=== PATIENT | female | born 1940 | race Caucasian/White ===

== ENCOUNTER → 2017-02-06 | Outpatient (CLI) | payer OTHER ==
--- NOTE | 2017-02-06 16:06 | ECHOCARDIOGRAM REPORT ---
*NOTICE TO RECEIVING CONSTITUTION PARTY AGENCY This information is strictly Confidential and protected under [place] law. [place] law prohibits you from making any further disclosure of this information unless further disclosure is expressly permitted by the written consent of the person to whom it pertains or is authorized by law. A general authorization for the release of medical or other information is not sufficient for this purpose. Hospital accepts no responsibility if the information is made available to any other person, INCLUDING THE PATIENT. Interpretation Summary * Name: CAYDEN LEIJA Study Date: 02/06/2017 02:06 PM BP: 176/78 mmHg * Patient Location: [facility] HR: 69 * : 1940 (M/d/yyyy) Gender: Female Height: 59 in * Age: 76 yrs Ethnicity: CA Weight: 140 lb * Ordering Physician: THOM CARVER. CLAUDETTE * Performed By: Robyn Hancock * * Reason For Study: MURMUR * BSA: 1.6 m2 * Normal biventricular systolic function. * Left ventricular class I diastolic dysfunction. * Normal chamber dimensions. * Trace tricuspid regurgitation. * No significant valvular abnormalities. Procedure Details * A complete two-dimensional transthoracic echocardiogram was performed (2D, M-mode, Doppler and color flow Doppler). Left Ventricle * The left ventricle is normal in size. * There is normal left ventricular wall thickness. * Ejection Fraction = 60-65%. * Left ventricular systolic function is normal. * A full diastolic examination was done with clinical findings of Class I diastolic dysfunction. * The left ventricular wall motion is normal. Right Ventricle * The right ventricle is normal in size and function. * The right ventricular systolic function is normal as assessed by tricuspid annular plane systolic excursion (TAPSE) (normal >1.5 cm). Atria * The left atrial size is normal. * Right atrial size is normal. * No ASD detected; PFO is not assessed. Mitral Valve * The mitral valve is normal. * There is no mitral valve stenosis. * There is no mitral regurgitation noted. Tricuspid Valve * The tricuspid valve is normal. * There is no tricuspid stenosis. * There is trace tricuspid regurgitation. * Right ventricular systolic pressure is normal. Aortic Valve * The aortic valve opens well. * The aortic valve is trileaflet. * Aortic stenosis is absent. * No aortic regurgitation is present. Pulmonic Valve * The pulmonic valve is not well visualized. * The pulmonary valve is inadequately visualized, but the Doppler data is adequate for interpretation. * There is no pulmonic valvular stenosis. * There is no pulmonic valvular regurgitation. Great Vessels * The aortic root is normal size. Pericardium/Pleural * There is no pericardial effusion. Great Vessels * Normal inferior vena cava diameter and respiratory variation suggests normal central venous pressure. MMode 2D Measurements and Calculations IVSd 1.1 cm IVSs 1.7 cm LVIDd 3.5 cm LVIDs 2.5 cm LVPWd 1.1 cm LVPWs 1.8 cm IVS/LVPW 0.94 FS 29.2 % EDV(Teich) 50.8 ml ESV(Teich) 21.8 ml EF(Teich) 57.0 % EDV(cubed) 42.8 ml ESV(cubed) 15.2 ml EF(cubed) 64.4 % % IVS thick 58.4 % % LVPW thick 55.2 % LV mass(C)d 120.4 grams LV mass(C)dI 76.0 grams/m\S\2 LV mass(C)s 163.7 grams LV mass(C)sI 103.3 grams/m\S\2 CO(Teich) 1.9 l/min CI(Teich) 1.2 l/min/m\S\2 SV(Teich) 29.0 ml SI(Teich) 18.3 ml/m\S\2 CO(cubed) 1.8 l/min CI(cubed) 1.1 l/min/m\S\2 SV(cubed) 27.6 ml SI(cubed) 17.4 ml/m\S\2 Ao root diam 3.0 cm Ao root area 6.9 cm\S\2 ACS 1.1 cm LA dimension 3.6 cm asc Aorta Diam 3.0 cm LA/Ao 1.2 LVOT diam 1.7 cm LVOT area 2.2 cm\S\2 LVAd ap4 23.3 cm\S\2 LVLd ap4 7.0 cm EDV(MOD-sp4) 64.3 ml LVAs ap4 13.2 cm\S\2 LVLs ap4 5.6 cm ESV(MOD-sp4) 26.7 ml EF(MOD-sp4) 58.5 % LVAd ap2 19.1 cm\S\2 LVLd ap2 6.7 cm EDV(MOD-sp2) 45.2 ml LVAs ap2 10.2 cm\S\2 LVLs ap2 5.7 cm ESV(MOD-sp2) 18.8 ml EF(MOD-sp2) 58.4 % CO(MOD-sp4) 2.4 l/min CI(MOD-sp4) 1.5 l/min/m\S\2 SV(MOD-sp4) 37.6 ml SI(MOD-sp4) 23.7 ml/m\S\2 CO(MOD-sp2) 1.7 l/min CI(MOD-sp2) 1.1 l/min/m\S\2 SV(MOD-sp2) 26.4 ml SI(MOD-sp2) 16.7 ml/m\S\2 Doppler Measurements and Calculations MV E max antoinette 62.1 cm/sec MV A max antoinette 98.5 cm/sec MV E/A 0.63 MV dec time 0.30 sec Ao V2 max 153.6 cm/sec Ao max PG 9.4 mmHg Ao max PG (full) 3.8 mmHg ADAN(V,A) 1.7 cm\S\2 ADAN(V,D) 1.7 cm\S\2 LV V1 max PG 5.6 mmHg LV V1 max 118.8 cm/sec PA V2 max 92.6 cm/sec PA max PG 3.4 mmHg TR max antoinette 261.1 cm/sec
== END | disposition home or self-care (01) ==
LOC: C.CPL 13:59
PROVIDERS: ATTEND Physician Assistant
DX: R01.1 Cardiac murmur, unspecified (principal)

== ENCOUNTER → 2017-03-12 | Outpatient (CLI) | payer OTHER ==
--- NOTE | 2017-03-12 14:18 | MAMMOGRAPHY REPORT ---
BILATERAL DIGITAL SCREENING MAMMOGRAM WITH CAD: 03/12/2017 CLINICAL HISTORY: Routine screening. Patient has no complaints. TECHNIQUE: Bilateral CC, MLO and repeat left MLO views were obtained. Current study was also evaluat ed with a Computer Aided Detection (CAD) system. COMPARISON: Comparison is made to exams dated: 09/14/2013 mammogram, 08/13/2012 mammogram, 07/11/2011 m ammogram, 06/27/2010 mammogram - [facility], 03/31/2009, and 07/04/2010 ultrasound - [facility]. BREAST COMPOSITION: The tissue of both breasts is heterogeneously dense, which may obscure small mas ses. FINDINGS: There are mild vascular calcifications in the breasts. Scattered and loosely grouped benig n-appearing round and punctate microcalcifications. No new suspicious mass, architectural distortion or cluster of microcalcifications is seen. IMPRESSION: ACR BI-RADS CATEGORY 1: NEGATIVE There is no mammographic evidence of malignancy. A 1 year screening mammogram is recommended. The pa tient will receive written notification of the results. Approximately 10% of breast cancers are not detected with mammography. A negative mammographic report should not delay biopsy if a clinically suggestive mass is present. Stella Hutson M.D. ay/:03/12/2017 08:51:08 General Dentist/Owner: Marya Martinez, [facility] letter sent: Normal 1/2 BI-RADS Code: ACR BI-RADS Category 1: Negative
== END | disposition home or self-care (01) ==
LOC: C.MAMM 08:17
PROVIDERS: ATTEND Physician Assistant
DX: Z12.31 Encounter for screening mammogram for malignant neoplasm of breast (principal)

== ENCOUNTER 2025-05-17 08:02 | Observation (INO) ==
--- NOTE | 2025-05-17 08:12 | Emergency Department Note ---
Impression & Plan Bilateral pneumonia, Abdominal pain ED Provider Note NAME: CAYDEN LEIJA AGE: 85 SEX: F : 1940 ARRIVES VIA: Walk-In INFORMANT: Patient, ED PROVIDER(S): Richard Griggs MD CHIEF COMPLAINT: Abdominal pain MEDICAL DECISION MAKING: Patient presents due to concern for abdominal pain. Patient reports this is positional and in the mid abdomen. Given the patient's age to be the patient would benefit from blood work and only screening x-ray even in light of the positional nature and that the fact the patient may just have an abdominal strain. Did discuss with the patient that if she did have an elevated white count would consider a CAT scan of the abdomen pelvis. Patient was ordered 500 of IV fluids in addition to Tylenol and lidocaine patch. Patient without chest pain or shortness of breath no nausea or vomiting. The patient's blood work shows a white count of 11. X-ray showed concern for possible bibasilar pneumonia. Hemoglobin 11.9 with a normal platelet count kidney function is unremarkable. Urinalysis without signs of obvious infection BioFire negative. Troponin negative. Pro-Marty negative. CT abdomen pelvis ordered. Unremarkable but noted bibasilar pneumonia. Patient denies any chest pain or cough. Patient also noted to have a mass of the uterus. He did discuss this and that this may benefit from further evaluation while inpatient patient's curb 65 score of 2 so recommend inpatient treatment. Patient was ordered IV Rocephin EKG without QT prolongation so azithromycin also added. I did speak with the on-call hospital service Dr. Leyva and the patient was admitted to the medicine service. Discussion w/ other healthcare providers: Dr. Luke inpatient medicine service Prior /Outside records reviewed: None Differential diagnosis: Strain, hernia, appendicitis, diverticulitis, UTI, obstruction, inflammatory bowel disease, renal colic, PUD, pancreatitis, biliary pathology, hernia, volvulus, constipation, as well as other pathologies were considered. Diagnostics, as interpreted by me: ECG: Sinus with first gravy block, rate of 64 prolonged LA normal QRS, left axis deviation Q-wave noted in V2. No obvious STEMI Cardiac monitoring: An order was placed for continuous cardiac monitoring. The monitor shows a rate of 67 with sinus rhythm. Patient was placed on pulse oximetry Medical decision rules: Curb 65 score of 2 Imaging studies: I informally interpreted the patient's chest x-ray shows possible bibasilar pneumonia with formal report to follow. HPI: Patient presents due to concern for abdominal pains. The patient states this been ongoing about 2 or 3 days has improved over the last 2 to 3 days and thought that this may be related to a strain. The patient states that she was doing some yard work and putting up some [place] lights and with the twisting and turning believes that she developed the discomfort. Patient denies any heavy lifting no falls or trauma. She denies any nausea vomiting. The patient reports that the pain is in the middle of her abdomen. Patient denies any difficulty with urination or defecation no blood in the urine or stool. Patient states that she has been taking some aspirin. The patient also has been applying rubbing alcohol to her abdomen. Patient denies any obvious hernias. No fevers or chills. She denies any chest pains or shortness of breath no cough or fever. PAST MEDICAL HISTORY: See Below PAST SURGICAL HISTORY: See Below SOCIAL HISTORY: See Below HOME MEDICATIONS: See Below ALLERGIES: See Below VITALS: See Below PHYSICAL EXAMINATION: GENERAL: NAD, non-toxic. EYE EXAM: Normal conjunctiva. PERRL, no anisocoria and EOM's grossly intact w/o pain. OROPHARYNX: Moist mucus membranes, grossly normal dentition. NECK: Trachea midline, no stridor. LUNGS: Clear to auscultation. Normal chest wall mechanics. HEART: NSR, systolic ejection murmur. ABDOMEN: Abdomen soft, mid abdomen pain without obvious hernias, no masses, no rebound or guarding. BACK: No CVA TTP. SKIN: No rashes and no bruising. UPPER EXTREMITIES: Upper extremities are grossly normal. LOWER EXTREMITIES: Grossly normal, no edema. NEURO EXAM: Awake and alert, follows commands, no obvious facial asymmetry, normal speech, moves all 4 extremities. Past Med/Surg History Problem List (Updated 05/18/25 @ 08:58 by Richard Griggs MD) Abdominal pain (Acute) Bilateral pneumonia (Acute) Anemia Pneumonia Sebaceous cyst Urge incontinence Hypercholesterolemia Lipoma Right shoulder pain Hypertension Overweight Heart murmur Diastolic dysfunction Tricuspid regurgitation Medical History Ganglion cyst Tick bite Contact dermatitis Surgical History Hx of excision of epidermal inclusion cyst (10/04/20) Excision of two cysts on back by Dr. Collins in clinic History of dental surgery bridges/ implants S/P lumpectomy, left breast left breast lump removal, benign Family History Father Hypertension Brother Dyslipidemia Hypertension Aunt Breast cancer Family/Other Breast cancer Uncle Cancer Social History Smoking Status: Never smoker Do You Dip or Chew Tobacco: No; Hx Alcohol Use: No Hx Substance Use: No Preferred Language: Azerbaijani Communication Ability: Effective Pool Nurse Required: No Beliefs That Will Affect Care: None marital status: Current Living Situation: Family Current Living Situation Comment: Lives with Daughter current occupational status: retired How many Children do You have: 4 Feels Safe at Home: Yes Assistive Devices: Glasses Allergies Allergies Allergy/AdvReac Type Severity Reaction Status Date / Time chocolate flavor AdvReac Verified 10/18/20 11:24 soy AdvReac Verified 10/18/20 11:24 strawberry AdvReac Verified 10/18/20 11:24 Home Meds Home Medications Medication Instructions Recorded Confirmed aspirin 81 mg tablet,delayed 81 mg PO DAILY 09/27/20 05/17/25 release (Adult Aspirin Regimen) Results & Data (ED) Vital Signs Vital Signs - 24 hr 05/17/25 09:00 05/17/25 10:00 05/17/25 10:00 Pulse Rate 72 73 73 Pulse Rate [Apical] Pulse Rate from SpO2 Sensor Pulse Rhythm Pulse Rhythm [Apical] Pulse Strength [Apical] Respiratory Rate 22 21 18 Respiratory Effort / Characteristics Respiratory Depth Respiratory Pattern Blood Pressure 190/80 H 210/89 H 210/89 H Blood Pressure [Left Arm] Blood Pressure Mean 126 145 145 Blood Pressure Mean [Left Arm] Pulse Oximetry 94 94 93 Oxygen Delivery Method Room Air Room Air Room Air 05/17/25 11:13 05/17/25 11:15 05/17/25 11:21 Pulse Rate 67 67 64 Pulse Rate [Apical] Pulse Rate from SpO2 Sensor 66 Pulse Rhythm Pulse Rhythm [Apical] Pulse Strength [Apical] Respiratory Rate 20 17 16 Respiratory Effort / Characteristics Respiratory Depth Respiratory Pattern Blood Pressure 193/84 H Blood Pressure [Left Arm] Blood Pressure Mean 102 Blood Pressure Mean [Left Arm] Pulse Oximetry 94 93 Oxygen Delivery Method Room Air 05/17/25 11:30 05/17/25 12:00 05/17/25 12:09 Pulse Rate 61 70 64 Pulse Rate [Apical] Pulse Rate from SpO2 Sensor 71 65 Pulse Rhythm Pulse Rhythm [Apical] Pulse Strength [Apical] Respiratory Rate 15 18 18 Respiratory Effort / Characteristics Respiratory Depth Respiratory Pattern Blood Pressure Blood Pressure [Left Arm] Blood Pressure Mean Blood Pressure Mean [Left Arm] Pulse Oximetry 93 93 Oxygen Delivery Method 05/17/25 12:10 05/17/25 12:10 05/17/25 12:10 Pulse Rate 67 Pulse Rate [Apical] Pulse Rate from SpO2 Sensor Pulse Rhythm Pulse Rhythm [Apical] Pulse Strength [Apical] Respiratory Rate 19 Respiratory Effort / Characteristics Respiratory Depth Respiratory Pattern Blood Pressure 217/104 H 217/104 H 217/104 H Blood Pressure [Left Arm] Blood Pressure Mean 169 169 169 Blood Pressure Mean [Left Arm] Pulse Oximetry 97 Oxygen Delivery Method 05/17/25 12:10 05/17/25 12:10 05/17/25 12:12 Pulse Rate 68 Pulse Rate [Apical] Pulse Rate from SpO2 Sensor Pulse Rhythm Pulse Rhythm [Apical] Pulse Strength [Apical] Respiratory Rate 19 Respiratory Effort / Characteristics Respiratory Depth Respiratory Pattern Blood Pressure 217/104 H 217/104 H Blood Pressure [Left Arm] Blood Pressure Mean 169 169 Blood Pressure Mean [Left Arm] Pulse Oximetry Oxygen Delivery Method 05/17/25 12:15 05/17/25 12:15 05/17/25 12:15 Pulse Rate 67 Pulse Rate [Apical] Pulse Rate from SpO2 Sensor Pulse Rhythm Pulse Rhythm [Apical] Pulse Strength [Apical] Respiratory Rate 18 Respiratory Effort / Characteristics Respiratory Depth Respiratory Pattern Blood Pressure 210/98 H 210/98 H Blood Pressure [Left Arm] Blood Pressure Mean 146 146 Blood Pressure Mean [Left Arm] Pulse Oximetry 85 L Oxygen Delivery Method 05/17/25 12:15 05/17/25 12:15 05/17/25 12:15 Pulse Rate Pulse Rate [Apical] Pulse Rate from SpO2 Sensor Pulse Rhythm Pulse Rhythm [Apical] Pulse Strength [Apical] Respiratory Rate Respiratory Effort / Characteristics Respiratory Depth Respiratory Pattern Blood Pressure 210/98 H 210/98 H 210/98 H Blood Pressure [Left Arm] Blood Pressure Mean 146 146 146 Blood Pressure Mean [Left Arm] Pulse Oximetry Oxygen Delivery Method 05/17/25 12:15 05/17/25 12:15 Pulse Rate 68 Pulse Rate [Apical] 67 Pulse Rate from SpO2 Sensor Pulse Rhythm Regular Pulse Rhythm [Apical] Regular Pulse Strength [Apical] Normal Respiratory Rate 16 15 Respiratory Effort / Characteristics Non-Labored Spontaneous Respiratory Depth Normal Respiratory Pattern Regular Blood Pressure Blood Pressure [Left Arm] 194/91 H Blood Pressure Mean Blood Pressure Mean [Left Arm] 125 Pulse Oximetry 94 95 Oxygen Delivery Method Room Air Room Air Home Medications Current Medication List: was personally reviewed by me Laboratory Data Attestation: I reviewed the patient's lab results. 05/18/25 07:32 05/18/25 07:32 Lab Results 05/17/25 05/17/25 05/17/25 Range/Units 08:32 10:00 10:40 WBC 11.08 H (4.8-10.8) K/ul RBC 3.77 L (4.20-5.40) M/uL Hgb 11.9 L (12.0-16.0) g/dL Hct 35.7 L (37.0-47.0) % MCV 94.7 (80.0-100.0) fL MCH 31.6 (25.0-34.0) pg MCHC 33.3 (32.0-36.0) g/dL RDW Std Deviation 50.6 H (36.4-46.3) fL RDW Coeff of Jose Martin 14.7 H (11.5-14.5) % Plt Count 319 (130-400) K/uL MPV 10.6 (9.4-12.4) fL Immature Gran % (Auto) 0.5 % Neut % (Auto) 82.8 % Lymph % (Auto) 6.9 % Mccreary % (Auto) 9.1 % Eos % (Auto) 0.2 % Baso % (Auto) 0.5 % Neut # (Auto) 9.16 H (1.40-6.50) K/uL Lymph # (Auto) 0.77 L (1.20-3.40) K/uL Mccreary # (Auto) 1.01 H (0.11-0.59) K/uL Eos # (Auto) 0.02 (0.00-0.50) K/uL Baso # (Auto) 0.06 (0.00-0.20) K/uL Immature Gran # (Auto) 0.06 (0.01-0.20) K/uL Sodium 138 (136-145) mmol/L Potassium 4.2 (3.5-5.1) mmol/L Chloride 104 (98-107) mmol/L Carbon Dioxide 26 (21-32) mmol/L Anion Gap 8 (3-11) BUN 20 (6-23) mg/dl Creatinine 0.78 (0.6-1.2) mg/dl Est Cr Clr Drug Dosing 43.5 ml/min eGFR 75.32 BUN/Creatinine Ratio 25.6 H (10-20) Glucose 149 H (70-99(Fasting)) mg/dl Calcium 10.1 (8.6-10.3) mg/dl Total Bilirubin 1.5 H (0.2-1.0) mg/dl AST 18 (13-39) U/L ALT 16 (7-52) U/L Alkaline Phosphatase 97 (34-104) U/L Troponin I High Sens (0-14) pg/ml Total Protein 8.3 (6.0-8.3) gm/dl Albumin 4.5 (3.4-5.0) gm/dl Globulin 3.8 (2.5-4.0) gm/dl Albumin/Globulin Ratio 1.2 (0.9-2) Lipase 4 L (11-82) U/L Procalcitonin (0-0.5) ng/ml Urine Color Yellow Urine Appearance Clear (Clear) Urine pH 6.5 (4.5-7.5) Ur Specific [place] 1.007 (1.000-1.030) Urine Protein Negative (Negative) Urine Glucose (UA) Negative (Negative) Urine Ketones Negative (Negative) Urine Blood Negative (Negative) Urine Nitrite Negative (Negative) Urine Bilirubin Negative (Negative) Urine Urobilinogen Negative (Negative) Ur Leukocyte Esterase Trace H (Negative) Urine WBC (Auto) 0-5 (0-5) /hpf Urine RBC (Auto) 0-2 (0-2) /hpf U Hyaline Cast (Auto) 0-2 (0-2) /lpf U Epithel Cells (Auto) 0-2 (0-2) /hpf Urine Bacteria (Auto) None Seen (None Seen) Urine Comment Adenovirus (PCR) Not Detected (NotDetected) B. pertussis DNA (PCR) Not Detected (NotDetected) B.parapertussis DNA PCR Not Detected (NotDetected) C. pneumoniae DNA (PCR) Not Detected (NotDetected) Coronavirus OC43 (PCR) Not Detected (NotDetected) Coronavirus HKU1 (PCR) Not Detected (NotDetected) Coronavirus 229E (PCR) Not Detected (NotDetected) SARS-CoV-2 (PCR) Not Detected (NotDetected) Coronavirus NL63 (PCR) Not Detected (NotDetected) Human Metapneumovir PCR Not Detected (NotDetected) Influenza Type A (PCR) Not Detected (NotDetected) Influenza Type B (PCR) Not Detected (NotDetected) M. pneumoniae (PCR) Not Detected (NotDetected) Parainfluenza 1 (PCR) Not Detected (NotDetected) Parainfluenza 2 (PCR) Not Detected (NotDetected) Parainfluenza 3 (PCR) Not Detected (NotDetected) Parainfluenza 4 (PCR) Not Detected (NotDetected) RSV (PCR) Not Detected (NotDetected) Entero/Rhino (PCR) Not Detected (NotDetected) 05/17/25 Range/Units 11:59 WBC (4.8-10.8) K/ul RBC (4.20-5.40) M/uL Hgb (12.0-16.0) g/dL Hct (37.0-47.0) % MCV (80.0-100.0) fL MCH (25.0-34.0) pg MCHC (32.0-36.0) g/dL RDW Std Deviation (36.4-46.3) fL RDW Coeff of Jose Martin (11.5-14.5) % Plt Count (130-400) K/uL MPV (9.4-12.4) fL Immature Gran % (Auto) % Neut % (Auto) % Lymph % (Auto) % Mccreary % (Auto) % Eos % (Auto) % Baso % (Auto) % Neut # (Auto) (1.40-6.50) K/uL Lymph # (Auto) (1.20-3.40) K/uL Mccreary # (Auto) (0.11-0.59) K/uL Eos # (Auto) (0.00-0.50) K/uL Baso # (Auto) (0.00-0.20) K/uL Immature Gran # (Auto) (0.01-0.20) K/uL Sodium (136-145) mmol/L Potassium (3.5-5.1) mmol/L Chloride (98-107) mmol/L Carbon Dioxide (21-32) mmol/L Anion Gap (3-11) BUN (6-23) mg/dl Creatinine (0.6-1.2) mg/dl Est Cr Clr Drug Dosing ml/min eGFR BUN/Creatinine Ratio (10-20) Glucose (70-99(Fasting)) mg/dl Calcium (8.6-10.3) mg/dl Total Bilirubin (0.2-1.0) mg/dl AST (13-39) U/L ALT (7-52) U/L Alkaline Phosphatase (34-104) U/L Troponin I High Sens 9.7 (0-14) pg/ml Total Protein (6.0-8.3) gm/dl Albumin (3.4-5.0) gm/dl Globulin (2.5-4.0) gm/dl Albumin/Globulin Ratio (0.9-2) Lipase (11-82) U/L Procalcitonin 0.05 (0-0.5) ng/ml Urine Color Urine Appearance (Clear) Urine pH (4.5-7.5) Ur Specific [place] (1.000-1.030) Urine Protein (Negative) Urine Glucose (UA) (Negative) Urine Ketones (Negative) Urine Blood (Negative) Urine Nitrite (Negative) Urine Bilirubin (Negative) Urine Urobilinogen (Negative) Ur Leukocyte Esterase (Negative) Urine WBC (Auto) (0-5) /hpf Urine RBC (Auto) (0-2) /hpf U Hyaline Cast (Auto) (0-2) /lpf U Epithel Cells (Auto) (0-2) /hpf Urine Bacteria (Auto) (None Seen) Urine Comment Adenovirus (PCR) (NotDetected) B. pertussis DNA (PCR) (NotDetected) B.parapertussis DNA PCR (NotDetected) C. pneumoniae DNA (PCR) (NotDetected) Coronavirus OC43 (PCR) (NotDetected) Coronavirus HKU1 (PCR) (NotDetected) Coronavirus 229E (PCR) (NotDetected) SARS-CoV-2 (PCR) (NotDetected) Coronavirus NL63 (PCR) (NotDetected) Human Metapneumovir PCR (NotDetected) Influenza Type A (PCR) (NotDetected) Influenza Type B (PCR) (NotDetected) M. pneumoniae (PCR) (NotDetected) Parainfluenza 1 (PCR) (NotDetected) Parainfluenza 2 (PCR) (NotDetected) Parainfluenza 3 (PCR) (NotDetected) Parainfluenza 4 (PCR) (NotDetected) RSV (PCR) (NotDetected) Entero/Rhino (PCR) (NotDetected) Administered Medications Aspirin (Aspirin 81 Mg Ectab) 81 mg PO DAILY [facility] Stop: 06/17/25 08:59 Last Admin: 05/18/25 08:07 Dose: 81 mg Documented By: dwayne Azithromycin (Azithromycin 250 Mg Tab) 250 mg PO QAM [facility] Stop: 05/21/25 09:01 Last Admin: 05/18/25 08:07 Dose: 250 mg Documented By: dwayne Enoxaparin Sodium (Enoxaparin Inj 40 Mg/0.4 Ml Syr) 40 mg SQ Q24H [facility] Stop: 06/16/25 15:59 Last Admin: 05/17/25 15:53 Dose: Not Given Documented By: dwayne Ondansetron HCl (Ondansetron Inj 2 Mg/Ml 2 Ml Vial) 4 mg IV Q6H PRN PRN Reason: Nausea Stop: 06/16/25 12:14 Last Admin: 05/17/25 15:53 Dose: 4 mg Documented By: dwayne Discontinued Medications Azithromycin (Azithromycin 250 Mg Tab) 500 mg PO NOW ONE Stop: 05/17/25 12:25 Last Admin: 05/17/25 12:34 Dose: 500 mg Documented By: jaime Hydralazine HCl (Hydralazine Hcl 20 Mg/Ml Vial) 5 mg IV NOW ONE Stop: 05/17/25 12:15 Last Admin: 05/17/25 12:35 Dose: 5 mg Documented By: jaime Hydralazine HCl (Hydralazine Hcl 20 Mg/Ml Vial) 10 mg IV NOW STA Stop: 05/17/25 14:10 Last Admin: 05/17/25 14:29 Dose: 10 mg Documented By: jaime Sodium Chloride (Nss) 500 mls @ 999 mls/hr IV .Q31M STA Stop: 05/17/25 08:52 Last Infusion: 05/17/25 09:37 Dose: Infused Documented By: Admin: 05/17/25 08:42 Dose: 999 mls/hr Documented By: HELEN Acetaminophen (Ofirmev) 1,000 mg in 100 mls @ 400 mls/hr IV NOW STA Stop: 05/17/25 08:36 Last Infusion: 05/17/25 09:37 Dose: Infused Documented By: Admin: 05/17/25 08:42 Dose: 400 mls/hr Documented By: HELEN Sodium Chloride (Nss) 500 mls @ 999 mls/hr IV .Q31M ONE Stop: 05/17/25 08:52 Last Admin: 05/17/25 09:37 Dose: Not Given Documented By: HELEN Ceftriaxone Sodium (Rocephin) 2,000 mg in 50 mls @ 100 mls/hr IV NOW STA Stop: 05/17/25 11:54 Last Infusion: 05/17/25 15:37 Dose: Infused Documented By: dwayne Admin: 05/17/25 11:39 Dose: 100 mls/hr Documented By: HELEN Ioversol (Optiray 320 100ml) 94 ml IV ONCE ONE Stop: 05/17/25 10:29 Last Admin: 05/17/25 10:28 Dose: 94 ml Documented By: PORFIRIO Lidocaine (Lidocaine 5% 1 Patch) 1 patch TD NOW STA Stop: 05/17/25 08:23 Last Admin: 05/17/25 08:43 Dose: 1 patch Documented By: HELEN Miscellaneous (Remove Lidoderm Patch) 1 each N/A DAILY@2100 [facility] Stop: 05/17/25 21:01 Last Admin: 05/17/25 21:25 Dose: 1 each Documented By: BMS Imaging Data Radiologist's Impression: Chest/Abdomen X-ray 05/17/25 08:22 XR abdomen 2V w PA chest CLINICAL HISTORY: abdominal pain COMPARISON STUDY: None FINDINGS: There is mild cardiomegaly without pulmonary vascular congestion. Inspiration is shallow. There is stranding and hazy opacity in the lung bases with blunting of the costophrenic angles. No pneumothorax. There is moderate retained stool. No bowel obstruction seen. No gross free air. IMPRESSION: 1. Pneumonia versus atelectasis in the lung bases. Possible small pleural effusions. 2. No acute findings seen at the abdomen. ACT 112: Negative or not required by law. Electronically signed by: Stuart Godinez M.D. 05/17/2025 9:07 AM Abdomen/Pelvis CT 05/17/25 10:[address] WITH IV CONTRAST CT DOSE: 1000.64 mGy.cm HISTORY: ab pain TECHNIQUE: Multiaxial CT images of the abdomen and pelvis were performed following the IV administration of 90 cc of Optiray, A dose lowering technique was utilized adhering to the principles of ALARA. COMPARISON STUDY: Chest x-ray earlier today FINDINGS: There is bandlike consolidation at the lung bases. There is reticular and groundglass opacity at the visualized right middle lobe. There is a trace right pleural effusion. ABDOMEN: Liver, gallbladder, spleen, pancreas, and adrenal glands are unremarkable. Kidneys show no hydronephrosis or calculi. There is a tiny cyst at the right kidney. There are moderate atherosclerotic calcifications. No abdominal aortic aneurysm. Pelvis: Urinary bladder is mildly distended. There is a lobulated hypodense mass measuring approximately 4 cm greatest dimension which is likely within the uterus. There is minimal sigmoid diverticulosis. No acute diverticulitis. There is moderate retained stool. Normal appendix. No bowel inflammation or obstruction seen. No free fluid, free air, or abscess. No enlarged adenopathy. Osseous structures: There is osteopenia. There is moderate chronic appearing height loss at the T12-L2 vertebral bodies and mild chronic-appearing height loss at the L3 vertebral body. There is severe lower lumbar degenerative disc disease. There is grade 1 anterolisthesis of L4 on 5. No acute-appearing osseous findings seen. IMPRESSION: 1. Bilateral lung base pneumonia. 2. No acute findings seen at the abdomen or pelvis. 3. Mass likely at the uterus. Follow-up pelvic ultrasound suggested. 4. Otherwise as described. ACT 112: Negative or not required by law. The above report was generated using voice recognition software. It may contain grammatical, syntax or spelling errors. Electronically signed by: Stuart Godinez M.D. 05/17/2025 11:05 AM Discharge Plan Visit Data Chief Complaint: Abdominal Pain Stated Complaint: ABD PAIN ED Provider: Richard Griggs Discharge Problem: Bilateral pneumonia, Abdominal pain Patient Disposition: Admitted As Inpatient Condition: Good Discharge Instructions Interventions: ED Discharge Assessment Last Done: 05/17/25 15:16 Discharge Problem: Bilateral pneumonia Qualifiers: Pneumonia type: due to unspecified organism Lung location: lower lobe of lung Q ualified Code(s): J18.9 - Pneumonia, unspecified organism Abdominal pain Qualifiers: Abdominal location: multiple sites Qualified Code(s): R10.85 - Abdominal pain of multiple sites
[2025-05-17] MEDS: SODIUM CHLORIDE 0.9% 500 ML IV STA (08:42)
[2025-05-17] MEDS: ACETAMINOPHEN 1,000 MG/100 ML VIAL IV STA (08:42)
[2025-05-17] MEDS: LIDOCAINE 5% 1 PATCH TD STA (08:43)
[2025-05-17 08:50] LABS: Hematocrit (blood only) 35.7 % (37.0-47.0); Hemoglobin 11.9 g/dL (12.0-16.0); Immature Granulocytes # (auto) 0.06 K/uL (0.01-0.20); Immature Granulocytes % (auto) 0.5 %; Mean Corpuscular Hemoglobin 31.6 pg (25.0-34.0); Mean Corpuscular Volume 94.7 fL (80.0-100.0); Platelet Count 319 K/uL (130-400); RDW Standard Deviation 50.6 fL (36.4-46.3); Red Blood Count 3.77 M/uL (4.20-5.40); White Blood Count 11.08 K/ul (4.8-10.8)
--- NOTE | 2025-05-17 09:08 | XRay Report ---
XR abdomen 2V w PA chest CLINICAL HISTORY: abdominal pain COMPARISON STUDY: None FINDINGS: There is mild cardiomegaly without pulmonary vascular congestion. Inspiration is shallow. T here is stranding and hazy opacity in the lung bases with blunting of the costophrenic angles. No pne umothorax. There is moderate retained stool. No bowel obstruction seen. No gross free air. IMPRESSION: 1. Pneumonia versus atelectasis in the lung bases. Possible small pleural effusions. 2. No acute findings seen at the abdomen. ACT 112: Negative or not required by law. Electronically signed by: Stuart Godinez M.D. 05/17/2025 9:07 AM
[2025-05-17 09:09] LABS: Alanine Aminotransferase 16.0 U/L (7-52); Albumin Globulin Ratio 1.2 (0.9-2); Albumin Level 4.5 gm/dl (3.4-5.0); Alkaline Phosphatase 97.0 U/L (34-104); Anion Gap 8.0 (3-11); Bilirubin,Total 1.5 mg/dl (0.2-1.0); Blood Urea Nitrogen 20.0 mg/dl (6-23); Calcium 10.1 mg/dl (8.6-10.3); Carbon Dioxide 26.0 mmol/L (21-32); Chloride 104.0 mmol/L (98-107); Creatinine Clr Calc Pharmacy 43.5 ml/min; Globulin 3.8 gm/dl (2.5-4.0); Glucose 149.0 mg/dl (70-99(Fasting)); Lipase 4.0 U/L (11-82); Potassium 4.2 mmol/L (3.5-5.1); Sodium 138.0 mmol/L (136-145); Total Protein 8.3 gm/dl (6.0-8.3)
[2025-05-17] MEDS: SODIUM CHLORIDE 0.9% 500 ML IV ONE (09:37)
[2025-05-17] MEDS: OPTIRAY 320 100ml IV ONE (10:28)
[2025-05-17 10:51] LABS: Appearance Urine Clear (Clear); Bacteria Urine Automated None Seen (None Seen); Cast Urine Automated 0-2 /lpf (0-2); Epithelial Cell Urine Auto 0-2 /hpf (0-2); Glucose Urine UA Negative (Negative); RBC Urine Automated 0-2 /hpf (0-2); WBC Urine Automated 0-5 /hpf (0-5)
--- NOTE | 2025-05-17 11:06 | CT Scan Report ---
ABDOMEN AND PELVIS CT WITH IV CONTRAST CT DOSE: 1000.64 mGy.cm HISTORY: ab pain TECHNIQUE: Multiaxial CT images of the abdomen and pelvis were performed following the IV administrat ion of 90 cc of Optiray, A dose lowering technique was utilized adhering to the principles of ALARA. COMPARISON STUDY: Chest x-ray earlier today FINDINGS: There is bandlike consolidation at the lung bases. There is reticular and groundglass opaci ty at the visualized right middle lobe. There is a trace right pleural effusion. ABDOMEN: Liver, gallbladder, spleen, pancreas, and adrenal glands are unremarkable. Kidneys show no h ydronephrosis or calculi. There is a tiny cyst at the right kidney. There are moderate atheroscleroti c calcifications. No abdominal aortic aneurysm. Pelvis: Urinary bladder is mildly distended. There is a lobulated hypodense mass measuring approximat beth 4 cm greatest dimension which is likely within the uterus. There is minimal sigmoid diverticulosi s. No acute diverticulitis. There is moderate retained stool. Normal appendix. No bowel inflammation or obstruction seen. No free fluid, free air, or abscess. No enlarged adenopathy. Osseous structures: There is osteopenia. There is moderate chronic appearing height loss at the T12-L 2 vertebral bodies and mild chronic-appearing height loss at the L3 vertebral body. There is severe l ower lumbar degenerative disc disease. There is grade 1 anterolisthesis of L4 on 5. No acute-appearin g osseous findings seen. IMPRESSION: 1. Bilateral lung base pneumonia. 2. No acute findings seen at the abdomen or pelvis. 3. Mass likely at the uterus. Follow-up pelvic ultrasound suggested. 4. Otherwise as described. ACT 112: Negative or not required by law. The above report was generated using voice recognition software. It may contain grammatical, syntax o r spelling errors. Electronically signed by: Stuart Godinez M.D. 05/17/2025 11:05 AM
[2025-05-17] MEDS: cefTRIAXone SODIUM 2,000 MG/50 ML BAG IV STA (11:39)
--- NOTE | 2025-05-17 11:46 | History & Physical Report ---
Date of Service May 17, 2025 Assessment & Plan (1) Pneumonia: (2) Hypertension: (3) Anemia: (4) Hypercholesterolemia: Plan This patient is an 85-year-old female with a history of untreated hyperlipidemia, whitecoat HTN, urinary incontinence, who presents to the ED with complaints of upper to mid abdominal pain. She was recently hanging [place] lights outside and thought maybe was related to that. Her pain is worse with trying to use her abdominal muscles. She has been very fatigued however the last few days and has noticed a nonproductive cough. No fevers or chills. No nausea/vomiting/diarrhea/constipation, no blood in her stool or indigestion. She was found to have fairly significant right sided pneumonia on a CT abdomen/pelvis. The CT otherwise showed a mass likely in the uterus. Her blood work showed mild anemia, mild leukocytosis, but no other signs of sepsis. Her total bilirubin was mildly elevated. Her blood pressure was significantly elevated at 210/89, pulse ox mildly low at 93% on room air, but vital signs were otherwise normal. She will be admitted for community-acquired pneumonia and hypertensive urgency. #Community-acquired pneumonia-curb 65 score 2 for BUN and age. With mild hypoxemia, mild leukocytosis. Abdominal pain could in part be referred from pneumonia. CT abdomen/pelvis without acute findings in the abdomen. Total bilirubin mildly elevated 1.5 could be Gilbert's syndrome as liver and gallb ladder appear normal. Respiratory BioFire negative, procalcitonin negative, but CXR and CT A/P clearly show pneumonia in RML and RLL, possible in LLL with bilateral small pleural effusions. - Admit to medical floor with telemetry - Treat pneumonia with ceftriaxone and azithromycin - Follow blood cultures, sputum culture if can produce a sample - Acetaminophen as needed for fevers or pain - Follow chest x-ray to resolution in 4 to 6 weeks #Abdominal pain-MSK in nature, clearly painful only with contraction of abdominal muscles. Abdominal pain could also be somewhat referred from the pneumonia. - Tylenol as needed for pain - Lidocaine patch placed in ED-continue #Hypertension/hypertensive urgency-noted in previous PCP notes from 4 years prior but no outpatient records currently available for review. She is not taking medication for this at home. Blood pressures here are quite elevated at 210/89. She reports whitecoat hypertension. With small pleural effusion seen on imaging which could be from pneumonia versus heart failure. With heart murmur noted on examination which patient reports is chronic - Check troponin - Check BNP - Check echocardiogram - Give IV hydralazine as needed for elevated blood pressure - Consider starting chlorthalidone versus lisinopril although she reports blood pressures at home are 120/80 #Hyperlipidemia-patient has declined treatment for this in the past. LDL in 2020 was elevated at 170. She takes a baby aspirin - Continue baby aspirin - Continue to follow with PCP #Uterine mass-likely fibroid. No vaginal bleeding or pelvic pain - Recommend outpatient pelvic ultrasound-discussed with patient and her daughter #Anemia-normocytic, Hgb at 11.9 with no baseline for comparison. No evidence of bleeding from anywhere. Last colonoscopy approximately 10 years ago - Check iron studies, B12, folate, TSH in the a.m. DVT prophylaxis-Lovenox SQ, SCDs Disposition-admit to medical floor with telemetry History of Present Illness Chief Complaint: Abdominal pain Primary Care Provider: Lucy Castillo MD This patient is an 85-year-old female with a history of untreated hyperlipidemia, whitecoat HTN, urinary incontinence, who presents to the ED with complaints of upper to mid abdominal pain. She was recently hanging [place] lights outside and thought maybe was related to that. Her pain is worse with trying to use her abdominal muscles. She has been very fatigued however the last few days and has noticed a nonproductive cough. No fevers or chills. No nausea/vomiting/diarrhea/constipation, no blood in her stool or indigestion. She was found to have fairly significant right sided pneumonia on a CT abdomen/pelvis. The CT otherwise showed a mass likely in the uterus. Her blood work showed mild anemia, mild leukocytosis, but no other signs of sepsis. Her total bilirubin was mildly elevated. Her blood pressure was significantly elevated at 210/89, pulse ox mildly low at 93% on room air, but vital signs were otherwise normal. She will be admitted for community-acquired pneumonia Allergies Allergy/AdvReac Type Severity Reaction Status Date / Time chocolate flavor AdvReac Verified 10/18/20 11:24 soy AdvReac Verified 10/18/20 11:24 strawberry AdvReac Verified 10/18/20 11:24 Home Medications Medication Instructions Recorded Confirmed Type aspirin 81 mg tablet,delayed 81 mg PO DAILY 09/27/20 05/17/25 History release (Adult Aspirin Regimen) Past Med/Surg History Problem List Anemia Pneumonia Sebaceous cyst Urge incontinence Hypercholesterolemia Lipoma Right shoulder pain Hypertension Overweight Heart murmur Diastolic dysfunction Tricuspid regurgitation Medical History Ganglion cyst Tick bite Contact dermatitis Surgical History Hx of excision of epidermal inclusion cyst (10/04/20) Excision of two cysts on back by Dr. Collins in clinic History of dental surgery bridges/ implants S/P lumpectomy, left breast left breast lump removal, benign Family History Father Hypertension Brother Dyslipidemia Hypertension Aunt Breast cancer Family/Other Breast cancer Uncle Cancer Social History Smoking Status: Never smoker Do You Dip or Chew Tobacco: No; Hx Alcohol Use: No Hx Substance Use: No Preferred Language: Burkin[place] Communication Ability: Effective Shark Biologist Required: No Beliefs That Will Affect Care: None marital status: Current Living Situation: Family Current Living Situation Comment: Lives with Daughter current occupational status: retired How many Children do You have: 4 Feels Safe at Home: Yes Assistive Devices: Glasses Review of Systems Review of Systems: All systems reviewed & are unremarkable except as noted in HPI & below Physical Exam Constitutional: WD/WN, vitals as above Neck: trachea midline, no thyromegaly Respiratory: normal respiratory effort; no cough Auscultation: + crackles (Right middle and lower lung bergeron); no rhonchi and no wheezes Cardiovascular: Rate/Rhythm: regular rate and regular rhythm Heart Sounds: + murmur (2/6 holosystolic murmur heard best at the LLSB) Extremities: no edema Chest (Breasts): Chest: normal inspection of chest Gastrointestinal (Abdomen): normal bowel sounds, soft, nontender, no hepatosplenomegaly Musculoskeletal: Extremities: extremities normal to inspection; no cyanosis and no clubbing Skin: no rashes, warm and dry Neurologic: moves all extremities and awake; no focal motor deficits Psychiatric: A+Ox3, euthymic affect Lymphatic: no lymphedema Results & Data Results & Data Vital Signs (Past 12 Hours) Vital Signs Temp Pulse Pulse Resp BP BP Pulse Ox 05/17/25 11:13 67 20 193/84 H 94 05/17/25 10:00 73 18 210/89 H 93 05/17/25 10:00 73 21 210/89 H 94 05/17/25 09:00 72 22 190/80 H 94 05/17/25 08:52 80 05/17/25 08:34 77 22 205/94 H 94 05/17/25 08:34 78 22 94 05/17/25 08:05 36.6 C 95 H 20 216/90 H 94 O2 Del Method 05/17/25 11:13 Room Air 05/17/25 10:00 Room Air 05/17/25 10:00 Room Air 05/17/25 09:00 Room Air 05/17/25 08:52 05/17/25 08:34 Room Air 05/17/25 08:34 Room Air 05/17/25 08:05 Room Air Laboratory Results CBC, CMP, UA reviewed Diagnostic Findings Chest/Abdomen X-ray 05/17/25 08:22 XR abdomen 2V w PA chest CLINICAL HISTORY: abdominal pain COMPARISON STUDY: None FINDINGS: There is mild cardiomegaly without pulmonary vascular congestion. Inspiration is shallow. There is stranding and hazy opacity in the lung bases with blunting of the costophrenic angles. No pneumothorax. There is moderate retained stool. No bowel obstruction seen. No gross free air. IMPRESSION: 1. Pneumonia versus atelectasis in the lung bases. Possible small pleural effusions. 2. No acute findings seen at the abdomen. ACT 112: Negative or not required by law. Electronically signed by: Stuart Godinez M.D. 05/17/2025 9:07 AM Abdomen/Pelvis CT 05/17/25 10:[address] WITH IV CONTRAST CT DOSE: 1000.64 mGy.cm HISTORY: ab pain TECHNIQUE: Multiaxial CT images of the abdomen and pelvis were performed following the IV administration of 90 cc of Optiray, A dose lowering technique was utilized adhering to the principles of ALARA. COMPARISON STUDY: Chest x-ray earlier today FINDINGS: There is bandlike consolidation at the lung bases. There is reticular and groundglass opacity at the visualized right middle lobe. There is a trace right pleural effusion. ABDOMEN: Liver, gallbladder, spleen, pancreas, and adrenal glands are unremarkable. Kidneys show no hydronephrosis or calculi. There is a tiny cyst at the right kidney. There are moderate atherosclerotic calcifications. No abdominal aortic aneurysm. Pelvis: Urinary bladder is mildly distended. There is a lobulated hypodense mass measuring approximately 4 cm greatest dimension which is likely within the uterus. There is minimal sigmoid diverticulosis. No acute diverticulitis. There is moderate retained stool. Normal appendix. No bowel inflammation or obstruction seen. No free fluid, free air, or abscess. No enlarged adenopathy. Osseous structures: There is osteopenia. There is moderate chronic appearing height loss at the T12-L2 vertebral bodies and mild chronic-appearing height loss at the L3 vertebral body. There is severe lower lumbar degenerative disc disease. There is grade 1 anterolisthesis of L4 on 5. No acute-appearing osseous findings seen. IMPRESSION: 1. Bilateral lung base pneumonia. 2. No acute findings seen at the abdomen or pelvis. 3. Mass likely at the uterus. Follow-up pelvic ultrasound suggested. 4. Otherwise as described. ACT 112: Negative or not required by law. The above report was generated using voice recognition software. It may contain grammatical, syntax or spelling errors. Electronically signed by: Stuart Godinez M.D. 05/17/2025 11:05 AM ECG Additional Comments: ECG on 05/17/2025 with sinus rhythm first-degree AV block, rate 64, no acute ischemic changes, subtle T wave inversions in aVL nonspecific Code Status & VTE Plan Code Status Full code VTE Prophylaxis Plan VTE Prophylaxis will be ordered: Yes PG Care Time/CCT Total # of Minutes Spent Total Time Spent with Patient: Total time spent is greater than 50% in coordination of care (as documented) at patient's floor/unit and/or counseling patient: Coding Level of Care Code 53356 INT INP/OBS CARE 3/75MIN Diagnoses Pneumonia J18.9 Hypertension I10 Anemia D64.9 Hypercholesterolemia E78.00
[2025-05-17] MEDS ORDERED: POLYETHYLENE (MIRALAX) 17 GM PACK PO PRN (12:15)
[2025-05-17] MEDS ORDERED: ACETAMINOPHEN 325 MG TAB PO PRN (12:15)
[2025-05-17] MEDS: AZITHROMYCIN 250 MG TAB PO ONE (12:34)
[2025-05-17 14:00] LABS: Chlamydia pneumoniae PCR Not Detected (NotDetected); Coronavirus 229E PCR Not Detected (NotDetected); Coronavirus CoV-2 (COVID19)PCR Not Detected (NotDetected); Coronavirus HKU1 PCR Not Detected (NotDetected); Coronavirus NL63 PCR Not Detected (NotDetected); Coronavirus OC43PCR Not Detected (NotDetected); Human Metapneumovirus PCR Not Detected (NotDetected); Parainfluenza Virus 1 PCR Not Detected (NotDetected); Parainfluenza Virus 2 PCR Not Detected (NotDetected); Parainfluenza Virus 3 PCR Not Detected (NotDetected); Parainfluenza Virus 4 PCR Not Detected (NotDetected); Respiratory Syncytial VirusPCR Not Detected (NotDetected); Rhinovirus/Enterovirus PCR Not Detected (NotDetected)
[2025-05-17] MEDS: ENOXAPARIN INJ 40 MG/0.4 ML SYR SQ SCH (15:53)
[2025-05-17] MEDS: ONDANSETRON INJ 2 MG/ML 2 ML VIAL IV PRN (15:53)
--- NOTE | 2025-05-17 15:58 | XCELERA ---
[id number]
[2025-05-17] MEDS: REMOVE LIDODERM PATCH SCH (21:25)
[2025-05-18] MEDS: ASPIRIN 81 MG ECTAB PO SCH (08:07)
[2025-05-18] MEDS: AZITHROMYCIN 250 MG TAB PO SCH (08:07)
[2025-05-18 08:12] LABS: Hematocrit (blood only) 31.6 % (37.0-47.0); Hemoglobin 10.6 g/dL (12.0-16.0); Immature Granulocytes # (auto) 0.05 K/uL (0.01-0.20); Immature Granulocytes % (auto) 0.4 %; Mean Corpuscular Hemoglobin 32.0 pg (25.0-34.0); Mean Corpuscular Volume 95.5 fL (80.0-100.0); Platelet Count 286 K/uL (130-400); RDW Standard Deviation 51.8 fL (36.4-46.3); Red Blood Count 3.31 M/uL (4.20-5.40); White Blood Count 12.50 K/ul (4.8-10.8)
[2025-05-18 08:30] LABS: Alanine Aminotransferase 11 U/L (7-52); Albumin Globulin Ratio 1.1 (0.9-2); Albumin Level 3.8 gm/dl (3.4-5.0); Alkaline Phosphatase 80 U/L (34-104); Anion Gap 8 (3-11); Bilirubin,Total 1.0 mg/dl (0.2-1.0); Blood Urea Nitrogen 22 mg/dl (6-23); Calcium 9.3 mg/dl (8.6-10.3); Carbon Dioxide 24 mmol/L (21-32); Chloride 107 mmol/L (98-107); Creatinine Clr Calc Pharmacy 39.3 ml/min; Globulin 3.4 gm/dl (2.5-4.0); Glucose 111 mg/dl (70-99(Fasting)); Iron < 10 mcg/dl (35-150); Potassium 4.0 mmol/L (3.5-5.1); Sodium 139 mmol/L (136-145); Total Iron Binding Cap Calc 246 mcg/dl (250-450); Total Protein 7.2 gm/dl (6.0-8.3); Transferrin 176 mg/dl (200-360)
[2025-05-18 08:43] LABS: Thyroid Stimulating Hormone 2.039 uIu/ml (0.300-4.500)
[2025-05-18 08:50] LABS: Ferritin 701.6 ng/ml (8-388); Folate (Folic Acid),Ser orPlas > 22.30 ng/ml (>5.38)
[2025-05-18 08:51] LABS: Vitamin B12 631 pg/ml (180-914)
[2025-05-18] MEDS: cefTRIAXone SODIUM 2,000 MG/50 ML BAG IV SCH (12:50)
[2025-05-18 15:39] VITALS: BP 155/72; RESP 20; TEMP 97.3; O2SAT 92
[2025-05-18 16:27] VITALS: PULSE 78
--- NOTE | 2025-05-18 16:30 | Discharge Summary ---
Discharge Summary Date of Service May 18, 2025 Principal Dx & Hospital Course #1 = Principal Diagnosis (1) Pneumonia: (2) Hypertension: (3) Anemia: (4) Hypercholesterolemia: Plan This patient is an 85-year-old female with a history of untreated hyperlipidemia, whitecoat HTN, urinary incontinence, who presents to the ED with complaints of upper to mid abdominal pain. She was recently hanging [place] lights outside and thought maybe was related to that. Her pain is worse with trying to use her abdominal muscles. She has been very fatigued however the last few days and has noticed a nonproductive cough. No fevers or chills. No nausea/vomiting/diarrhea/constipation, no blood in her stool or indigestion. She was found to have fairly significant right sided pneumonia on a CT abdomen/pelvis. The CT otherwise showed a mass likely in the uterus. Her blood work showed mild anemia, mild leukocytosis, but no other signs of sepsis. Her total bilirubin was mildly elevated. Her blood pressure was significantly elevated at 210/89, pulse ox mildly low at 93% on room air, but vital signs were otherwise normal. She was admitted for community-acquired pneumonia and hypertensive urgency. #Community-acquired pneumonia/small pleural effusions-CURB- 65 score 2 for BUN and age. With mild hypoxemia, mild leukocytosis. Abdominal pain could in part be referred from pneumonia. CT abdomen/pelvis without acute findings in the abdomen. Total bilirubin mildly elevated 1.5 could be Gilbert's syndrome as liver and gallbladder appear normal-repeat total bilirubin on the day of discharge was normal. Respiratory BioFire negative, procalcitonin negative, CRP elevated at 17. CXR and CT A/P clearly show pneumonia in RML and RLL, possible in LLL with bilateral small pleural effusions. BNP mildly elevated and echo with moderate to severe LVH but preserved EF. She had no arrhythmias on telemetry monitoring. She was treated for pneumonia with ceftriaxone and azithromycin. A sputum culture was never collected. Her blood cultures remained no growth to date at 24 hours. Leukocytosis persisted at 12, pulse ox 92% on room air, but overall feeling much improved by hospital day #2. - Continue azithromycin for 3 more days to finish out 5-day course. Finish cefdinir x 5 more days to finish out a 7-day course - Follow blood cultures after discharge-no growth to date - Acetaminophen as needed for fevers or pain - Follow chest x-ray to resolution in 4 to 6 weeks #Abdominal pain-MSK in nature, clearly painful only with contraction of abdominal muscles. Abdominal pain could also be somewhat referred from the pneumonia. Abdominal pain is almost completely resolved by hospital day #2 - Tylenol as needed for pain - Lidocaine patch placed x 1 and no need to continue after discharge #Hypertension/hypertensive urgency-noted in previous PCP notes from 4 years prior but no outpatient records currently available for review. She is not taking medication for this at home. Blood pressures here are quite elevated at 210/89. She reports whitecoat hypertension. With small pleural effusion seen on imaging which could be from pneumonia versus heart failure. With heart murmur noted on examination which patient reports is chronic. Troponin negative and ECG without ischemic changes-only had mild/subtle T wave inversions in lead aVL which are nonspecific. Echo here showed moderate to severe LVH and sclerotic aortic valve without aortic stenosis, preserved EF. Suspect she has uncontrolled hypertension at home that she is unaware of. Recommend starting antihypertensive medications but she prefers to discuss this with her PCP. She was treated with 2 doses of hydralazine 5 mg IV and blood pressures improved to the 150s over 70s by the time of discharge. - Consider starting chlorthalidone versus lisinopril as an outpatient-defer to PCP - Discussed low-sodium diet #Hyperlipidemia-patient has declined treatment for this in the past. LDL in 2020 was elevated at 170. She takes a baby aspirin - Continue baby aspirin - Continue to follow with PCP #Uterine mass-likely fibroid. No vaginal bleeding or pelvic pain - Recommend outpatient pelvic ultrasound-discussed with patient and her daughter-defer to PCP to order pelvic ultrasound #Anemia-normocytic, Hgb at 11.9 with no baseline for comparison. No evidence of bleeding from anywhere. Last colonoscopy approximately 10 years ago. Iron studies show chronic disease and perhaps suppression due to acute illness. B12, folate, and TSH all normal - Recommend following CBC and repeat iron studies in 1 month as an outpatient with PCP - If iron deficient, recommend EGD and colonoscopy with GI DVT prophylaxis-Lovenox SQ, SCDs Disposition-stable for discharge to home. All care discussed with her daughter at the bedside on the day of discharge Notes For Next Care Provider Check chest x-ray in 4 to 6 weeks to ensure resolution of pneumonia Needs pelvic ultrasound for uterine mass Recommend starting antihypertensive medication as an outpatient-patient prefers to discuss with PCP Check CBC and iron studies in 1 month Medication Changes From Visit Added cefdinir 300 mg p.o. twice daily x 5 days Added azithromycin 250 mg p.o. once daily x 3 days Admission HPI Per Admitting Provider This patient is an 85-year-old female with a history of untreated hyperlipidemia, whitecoat HTN, urinary incontinence, who presents to the ED with complaints of upper to mid abdominal pain. She was recently hanging [place] lights outside and thought maybe was related to that. Her pain is worse with trying to use her abdominal muscles. She has been very fatigued however the last few days and has noticed a nonproductive cough. No fevers or chills. No nausea/vomiting/diarrhea/constipation, no blood in her stool or indigestion. She was found to have fairly significant right sided pneumonia on a CT abdomen/pelvis. The CT otherwise showed a mass likely in the uterus. Her blood work showed mild anemia, mild leukocytosis, but no other signs of sepsis. Her total bilirubin was mildly elevated. Her blood pressure was significantly elevated at 210/89, pulse ox mildly low at 93% on room air, but vital signs were otherwise normal. She will be admitted for community-acquired pneumonia Discharge Exam Constitutional WD/WN, vitals as above Respiratory normal respiratory effort; no cough Auscultation: lungs clear to auscultation bilaterally and + diminished lung sounds (Right base); no rhonchi and no wheezes Cardiovascular Rate/Rhythm: regular rate and regular rhythm Heart Sounds: + murmur (2/6 holosystolic murmur heard best at the LLSB) Extremities: no edema Chest (Breasts) Chest: normal inspection of chest Gastrointestinal (Abdomen) normal bowel sounds, soft, nontender, no hepatosplenomegaly Musculoskeletal Extremities: extremities normal to inspection; no cyanosis and no clubbing Skin no rashes, warm and dry Neurologic moves all extremities and awake; no focal motor deficits Psychiatric A+Ox3, euthymic affect Lymphatic no lymphedema Discharge Plan Discharge Items Patient Disposition: Home - Self-Care Reason For Visit: PNA, HTN Discharge Diagnosis: Pneumonia Uncontrolled hypertension Anemia Uterine mass Condition on Discharge: Good Activity: As commented below Lifting: Gradually increase as tolerated Bathing: No limitations Exercise/Sports: Gradually increase as tolerated Weightbearing: Full weightbearing Non-emergency contact: Primary Care Provider Call non-emergency contact if: you have any medication questions and your symptoms worsen Follow-up/Referrals: Lucy Castillo MD [Primary Care Provider] - (Follow-up within 1-2 weeks) Diet: Heart Healthy Addtl Attending Provider Instructions: You were admitted with pneumonia and treated with antibiotics. Please finish out 3 more days of the antibiotic called azithromycin once daily, and 5 more days of the antibiotic called cefdinir which is to be taken twice a day. You should have a repeat chest x-ray in 4 to 6 weeks to ensure that your pneumonia is resolved. Your primary care physician can order the chest x-ray for you. You are found to be anemic. Your vitamin B12, folate, and thyroid-stimulating hormone levels were all normal. However, your iron studies were suppressed because of the inflammation from your pneumonia, therefore it is unclear if you have iron deficiency or not. Please have your primary care physician repeat your complete blood count and your iron studies in 1 month as an outpatient. If you do have iron deficiency anemia, it is important that you have a workup for that which usually includes an upper and lower endoscopy with a food writer to look for source of bleeding or poor absorption of iron in the diet. You were incidentally found to have a small mass inside the uterus on your CT scan which could be a fibroid but it is unclear. Please have your primary care physician order you a pelvic ultrasound as an outpatient to further evaluate this. Your blood pressures were significantly elevated on admission. This was treated with IV medication to bring your blood pressure down. Your repeat blood pressures are still somewhat elevated and you should be treated with medication for high blood pressure. Please discuss this with your primary care physician at your follow-up appointment. You had an echocardiogram which showed some thickening of the left side of the heart which is caused by elevated blood pressures over a long period of time. The treatment for this is better control of your blood pressures with medication. You can also follow a low-salt diet. The abdominal pain you are having is likely due to muscle soreness from overuse. You can take Tylenol as needed for this pain but it already seems to be much improved. It was a pleasure taking care of you! If you have any questions about your care before your hospital follow-up visit with your primary care provider, please call [phone] and ask to be transferred to the [facility] office. Sincerely, Court Leyva M.D. Pending Studies at Discharge: Yes (Final blood cultures-no growth to date) Stand-Alone Forms: [facility], Smoking Cessation Medications and DC Order Prescriptions: New acetaminophen 325 mg Tablet 650 mg PO Q4H PRN (Reason: pain) Qty: 30 0RF Rx Instructions: [id number] azithromycin 250 mg Tablet 250 mg PO QAM Qty: 3 0RF cefdinir 300 mg capsule 300 mg PO BID 5 Days Qty: 10 0RF Continued aspirin [Adult Aspirin Regimen] 81 mg tablet,delayed release (DR/EC) 81 mg PO DAILY Discharge Orders: Discharge Order (Routine); Ordered 05/18/25 Ordered By: Court Fam/Other Patient Handouts: Treating Pneumonia, High Blood Pressure Risk Factors, When You Have Pneumonia, High Blood Pressure Tx Admission Data Admit Date/Time: 05/17/25 12:16 Attending Provider: Court Leyva Admit Provider: Coutr Leyva Primary Care Provider: Lucy Castillo Other Providers: Court Leyva Hospital Stay Data Consultations 05/17/25 11:25 ED Decision to Admit Stat Diagnostic Imagining Performed 05/17/25 10:00 CT abd pelvis IV con only Stat Echocardiogram Pending Results Patient Have Any Pending Studies at Discharge: Yes (Final blood cultures-no growth to date) Discharge Instructions Given to Patient (Per Discharging Provider) You were admitted with pneumonia and treated with antibiotics. Please finish out 3 more days of the antibiotic called azithromycin once daily, and 5 more day s of the antibiotic called cefdinir which is to be taken twice a day. You should have a repeat chest x-ray in 4 to 6 weeks to ensure that your pneumonia is resolved. Your primary care physician can order the chest x-ray for you. You are found to be anemic. Your vitamin B12, folate, and thyroid-stimulating hormone levels were all normal. However, your iron studies were suppressed because of the inflammation from your pneumonia, therefore it is unclear if you have iron deficiency or not. Please have your primary care physician repeat your complete blood count and your iron studies in 1 month as an outpatient. If you do have iron deficiency anemia, it is important that you have a workup for that which usually includes an upper and lower endoscopy with a food writer to look for source of bleeding or poor absorption of iron in the diet. You were incidentally found to have a small mass inside the uterus on your CT scan which could be a fibroid but it is unclear. Please have your primary care physician order you a pelvic ultrasound as an outpatient to further evaluate this. Your blood pressures were significantly elevated on admission. This was treated with IV medication to bring your blood pressure down. Your repeat blood pressures are still somewhat elevated and you should be treated with medication for high blood pressure. Please discuss this with your primary care physician at your follow-up appointment. You had an echocardiogram which showed some thickening of the left side of the heart which is caused by elevated blood pressures over a long period of time. The treatment for this is better control of your blood pressures with medication. You can also follow a low-salt diet. The abdominal pain you are having is likely due to muscle soreness from overuse. You can take Tylenol as needed for this pain but it already seems to be much improved. It was a pleasure taking care of you! If you have any questions about your care before your hospital follow-up visit with your primary care provider, please call [phone] and ask to be transferred to the [facility] office. Sincerely, Court Leyva M.D. Total Time Total Time Spent Total Time Spent (In Minutes): 35 minutes Total Time Includes: Examination of the Patient, Discharge Planning and Medication Reconciliation Coding Level of Care Code 43102 INP/OBS DISCH >30 MIN Diagnoses Pneumonia J18.9 Hypertension I10 Anemia D64.9 Hypercholesterolemia E78.00
--- NOTE | 2025-05-18 22:02 | Electrocardiogram Report ---
Test Reason : Blood Pressure : */* mmHG Vent. Rate : 64 BPM Atrial Rate : 64 BPM P-R Int : 218 ms QRS Dur : 102 ms QT Int : 442 ms P-R-T Axes : 34 -37 81 degrees QTcB Int : 455 ms Sinus rhythm with 1st degree A-V block Left axis deviation Minimal voltage criteria for LVH, may be normal variant ( Huan product ) Septal infarct , age undetermined Poor R wave progression, consider anterior FL vs. lead placement vs. LVH Abnormal ECG No previous ECGs available Confirmed by Rohan Almazan ([id number]) on 05/18/2025 10:02:27 PM Referred By: REFERRED SELF Confirmed By: Rohan Almazan
--- NOTE | 2025-06-03 08:58 | Coding Query ---
A supporting diagnosis is required for the test/procedure performed on this patient in order for us to be reimbursed by the patient's insurance. Please provide a supporting diagnosis for the following test/procedure listed below next to the test name. *If there is no additional diagnosis for this patient that would support the following test/procedure please document that below next to the test/procedure. Test(s)/Procedure(s) that require a supporting diagnosis: * 22971 Vitamin B12 DIAGNOSIS: Normocytic anemia * 08322 Folate DIAGNOSIS: Normocytic anemia Thank you Kaylin Elder [employer] Once completed, please kindly fax back to [phone] For questions please call [phone] [facility]
== END 2025-05-18 16:50 | disposition home or self-care (01) | DRG 194 ==
LOC: SUATTDRO → ED 08:02 → INTOOBSV 12:16 → 2N 12:16